=== PATIENT | male | born 1955 | race Caucasian/White ===

== ENCOUNTER → 2016-09-11 | Day surgery (SDC) | payer BC ==
[~2016-09-11] MED LIST: BUPIVACAINE HCL PF 0.25% 30 ML VIAL ONE; KETOROLAC TROMETHAMINE 30 MG/ML (IVP) VIAL IV PUSH ONE; LACTATED RINGER'S 1000 ML INJ 1,000 ML ONE; MIDAZOLAM HCL 2 MG/2 ML VIAL ONE; ONDANSETRON HCL 4 MG/2 ML VIAL IV PUSH ONE; PROPOFOL 200 MG/20 ML AMP IV ONE; ceFAZolin 2 GM PREMIX 50 ML ONE
--- NOTE | 2016-09-15 07:22 | MP ---
cc: DOMINGA PARRY DPM DATE OF SURGERY 09/11/2016 PREOPERATIVE DIAGNOSIS Right hallux rigidus. POSTOPERATIVE DIAGNOSIS Right hallux rigidus. PROCEDURE PERFORMED Right first MPJ arthrodesis. MATERIALS USED [employer] small first ray plate, 2.7 locking screws and 3.0, DART-FIRE screws. SPECIMEN Right hallux joint capsule resumed gouty tophi. ESTIMATED BLOOD LOSS Less than 30 mL. COMPLICATIONS None. ANESTHESIA General with 0.25% Marcaine plain, 30 mL. DRAINS None. TOURNIQUET TIME 70 minutes at a setting of 215 mmHg. PLAN OF ACTIVITY PACU, then D/C home once stable per Same-Day Surgery criteria. PROCEDURE IN DETAIL Under mild sedation the patient was brought into the operating room, placed on the operative room table in the supine position. Following the induction of general anesthesia, local anesthesia was obtained about the forefoot utilizing standard block fashion. The patient's foot was then scrubbed, prepped and draped in the usual aseptic fashion. The foot was elevated, exsanguinated and the previously-placed mid-ankle tourniquet was inflated at 215 mmHg. An incision was made over the dorsal aspect of the first MPJ. Sharp and blunt dissection was carried down to joint capsule. Upon incising the inner lining of the joint capsule, there was a white chalky substance, presumed gouty tophi, and this was passed off the field for pathological analysis. A linear incision was made revealing severe arthritic findings and a dorsal osteophyte at the first metatarsal head as well as the base of the proximal phalanx. This was then resected utilizing power instrumentation, McGlamry elevator introduced deep into the first MPJ freeing up the sesamoids. Next, all and minimal remaining cartilage was removed of the joint surface and the joint was then prepped utilizing subchondral drilling as well as osteotome and mallet technique. Utilizing reciprocal planing, the toe was positioned to slight dorsiflexion, allowing the pulp of the toe slightly elevated from a simulated weightbearing surface. This was then flushed with copious amounts of normal saline before arthrodesis. A wire was placed through the distal medial proximal phalanx and across the lateral cortex at the first metatarsal head. Next, a screw was then placed over this. This was a compression headless screw. There was noted to be compression across the arthrodesis site. Next, a dorsal plate was then placed and this was a five-holed plate. The most distal aspect of the plate was then secured utilizing 2.7 screws, utilizing the compression ramp within the plate. A screw was then placed bicortical further compressing the arthrodesis site and the most proximal screws were then placed further securing the plate. There was noted to be stable fixation construct, compression across the arthrodesis site and excellent alignment clinically and radiographically. The joint capsule was then closed utilizing Vicryl. The skin was closed utilizing Monocryl and nylon. Upon relieving the tourniquet there is a prompt hyperemic response to all digits without any delayed capillary fill time. A bulky bandage was placed. The patient was then positioned in a controlled ankle motion boot. Upon relieving the tourniquet there was a prompt hyperemic response to all digits without any delayed capillary fill time. The patient was transferred from OR to PACU with all vital signs stable. He is to heel transfer weight-bear only. He will follow up within 3-5 days. JENN Slaughter/SIMON /2:53 PM /6:13 AM
== END | disposition home or self-care (01) ==
LOC: ESDC 11:39
PROVIDERS: ATTEND Podiatrist Foot & Ankle Surgery
DX: M20.21 Hallux rigidus, right foot (principal)
CPT/HCPCS: 01480; 28750; 73620; 76000; 88305; C1713; J0690; J1885; J2250; J2405; J3010; J7120; 88313